=== PATIENT | male | born 1970 | race Hispanic/Latino ===

== ENCOUNTER 2016-08-08 12:14 | Emergency (ER) | payer SELFPAY ==
[2016-08-08] MEDS ORDERED: amLODIPine BESYLATE 5 MG TAB PO ONE (12:24)
[2016-08-08 12:25] VITALS: TEMP 97
[2016-08-08] MEDS ORDERED: cloNIDine HCL 0.1 MG TAB PO ONE ×2 (12:25→15:04)
[2016-08-08] MEDS ORDERED: HYDROcodone 5MG/APAP 325MG 1 EA TAB PO ONE (12:25)
[2016-08-08 13:44] VITALS: O2SAT 97
--- NOTE | 2016-08-08 14:50 | ED.PDOC ---
History of Present Illness - General Chief Complaint: Blood Pressure Problem Stated Complaint: HYPERTENSION, HEADACHE Time Seen by Provider: 08/08/16 12:24 Source: patient Exam Limitations: no limitations - History of Present Illness Initial Comments: the patient is a 46-year-old male presenting to the emergency room secondary to headache with associated dizziness and blurry vision for the last 3 -4 days. Headache is fairly severe. There is a little more pain to the left side of the scalp. Patient has gotten more blurry over the last 2 days. He does have a history of hypertension but has not been taking his medications. He has not been following up with primary care doctor. He is unsure what his blood pressure normally runs. He is not having any chest pain or shortness of breath. No syncope or near syncope. Headache is made worse by moving his head. Severity: moderate Improving Factors: nothing Worsening Factors: movement Associated Symptoms: diaphoresis, headaches, loss of appetite, malaise Allergies/Adverse Reactions: Allergies Ibuprofen Allergy (Verified 08/08/16 12:19) Home Medications: Ambulatory Orders Amlodipine Besylate 5 mg PO DAILY #30 tab 08/08/16 Hydrochlorothiazide 12.5 mg PO DAILY #30 tab 08/08/16 Review of Systems - Review of Systems Constitutional: States: malaise EENTM: States: blurred vision Respiratory: States: no symptoms reported Cardiology: States: no symptoms reported Gastrointestinal/Abdominal: States: no symptoms reported Genitourinary: States: no symptoms reported Musculoskeletal: States: no symptoms reported, neck pain Skin: States: no symptoms reported Neurological: States: anxiety, headache All other Systems: No Change from Baseline Past Medical History (General) - Patient Medical History Hx Seizures: No Hx Asthma: No Hx of COPD: No Hx Cardiac Disorders: Yes Hx Congestive Heart Failure: No Hx Pacemaker: No Hx Hypertension: Yes Hx Diabetes: No Hx Gastroesophageal Reflux: No Surgical History: other Family Medical History - Family History Mother Family History: Unknown Physical Exam - Physical Exam General Appearance: Alert Eye Exam: bilateral normal Ears, Nose, Throat: hearing grossly normal, normal ENT inspection, normal pharynx Neck: full range of motion, supple, other - the patient has tenderness to palpation over the left side of the scalp and over his posterior atlantooccipital junction. Respiratory: chest non-tender, lungs clear, normal breath sounds, no respiratory distress, no accessory muscle use Cardiovascular/Chest: normal peripheral pulses, regular rate, rhythm, no edema Peripheral Pulses: radial,right: 2+, radial,left: 2+, dorsalis pedis,right: 2+, dorsalis pedis,left: 2+, posterior tibialis,right: 2+, posterior tibialis,left: 2+ Gastrointestinal/Abdominal: non tender, soft Rectal Exam: deferred Back Exam: normal inspection, no CVA tenderness, no vertebral tenderness Extremity: normal range of motion, non-tender, normal inspection, no pedal edema , normal capillary refill Neurologic: viticulturist II-XII nml as tested - vision is a little blurry initially., alert, normal mood/affect, oriented x 3 Skin Exam: normal color Comments: Vital Signs - 24 hr 08/08/16 08/08/16 08/08/16 12:22 12:28 13:00 Temperature 97.0 F L Pulse Rate [ 90 90 LEFT BRACHIAL] Respiratory 18 Rate Blood Pressure 173/103 158/96 [LEFT BRACHIAL] O2 Sat by Pulse 95 97 Oximetry 08/08/16 13:40 Temperature Pulse Rate [ 82 LEFT BRACHIAL] Respiratory 16 Rate Blood Pressure 130/79 [LEFT BRACHIAL] O2 Sat by Pulse Oximetry Progress - Progress Progress: 08/08/16 14:52 the patient is a 46-year-old male presenting due to hypertensive emergency. The patient has responded well to oral antihypertensives. headache and blurry vision have improved significantly. The patient does exhibit signs of cardiac strain on his EKG. The patient will be placed on amlodipine 5 mg by mouth daily along with hydrochlorothiazide 12.5 mg by mouth daily. He does need to obtain an extra large blood pressure cuff and check his blood pressures 2 times daily while he is at rest. He also needs to start taking 160 mg of aspirin daily. He also needs to get set up with a primary care doctor. He needs further testing including a fasting lipid panel. Gross examination of the blood work here shows that his blood is significantly lipemic. He needs to discuss a plan of treatment for that with his primary care doctor in the very near future. In the meantime, he needs to work on diet and exercise, targeting weight loss. ER warnings were given for any recurrence or worsening of symptoms. His blood sugar was mildly elevated today here however he was under stress and this does need to be followed as well. - Results/Orders Results/Orders: Laboratory Tests 08/08/16 08/08/16 08/08/16 12:40 12:40 12:40 WBC 9.5 RBC 4.61 L Hgb 14.9 Hct 42.2 MCV 91.5 MCH 32.3 H MCHC 35.3 RDW 13.9 Plt Count 143 MPV 11.2 H Absolute Neuts (auto) 6.70 Absolute Lymphs (auto) 2.10 Absolute Monos (auto) 0.60 Absolute Eos (auto) 0.00 Absolute Basos (auto) 0.10 Neutrophils % 70.2 Lymphocytes % 22.0 Monocytes % 6.7 Eosinophils % 0.2 L Basophils % 0.9 ESR 15 Sodium 133 L Potassium 4.1 Chloride 100 L Carbon Dioxide 25 Anion Gap 12.1 BUN 17 Creatinine 0.88 BUN/Creatinine Ratio 19.3 Random Glucose 169 H Serum Osmolality 271.8 L Calcium 9.2 Total Bilirubin 0.2 AST 42 ALT 62 H Alkaline Phosphatase 112 Creatine Kinase 225 H* CK-MB (CK-2) 3.7 CK-MB (CK-2) % 1.64 Troponin I < 0.02 B-Natriuretic Peptide 7.1 Serum Total Protein 6.6 Albumin 4.6 Globulin 2.0 L Albumin/Globulin Ratio 2.3 H TSH 0.73 Urine Color Urine Appearance Urine pH Ur Specific [place] Urine Protein Urine Glucose (UA) Urine Ketones Urine Blood Urine Nitrite Urine Bilirubin Urine Urobilinogen Ur Leukocyte Esterase Urine RBC Urine WBC Ur Epithelial Cells Urine Bacteria 08/08/16 13:04 WBC RBC Hgb Hct MCV MCH MCHC RDW Plt Count MPV Absolute Neuts (auto) Absolute Lymphs (auto) Absolute Monos (auto) Absolute Eos (auto) Absolute Basos (auto) Neutrophils % Lymphocytes % Monocytes % Eosinophils % Basophils % ESR Sodium Potassium Chloride Carbon Dioxide Anion Gap BUN Creatinine BUN/Creatinine Ratio Random Glucose Serum Osmolality Calcium Total Bilirubin AST ALT Alkaline Phosphatase Creatine Kinase CK-MB (CK-2) CK-MB (CK-2) % Troponin I B-Natriuretic Peptide Serum Total Protein Albumin Globulin Albumin/Globulin Ratio TSH Urine Color Yellow Urine Appearance Clear Urine pH 7.0 Ur Specific [place] 1.020 Urine Protein Negative Urine Glucose (UA) Negative Urine Ketones Negative Urine Blood Trace-intact H Urine Nitrite Negative Urine Bilirubin Negative Urine Urobilinogen 0.2 Ur Leukocyte Esterase Negative Urine RBC 0-1 Urine WBC 0 Ur Epithelial Cells 0 Urine Bacteria 0 EKG shows normal sinus rhythm with T-wave inversions in leads 1, 2, V4, V5 and V6. Departure - Departure Clinical Impression: Hypertensive emergency without congestive heart failure Disposition: Discharge to Home or Self Care Condition: Fair Departure Forms: ED Discharge - Pt. Copy, Patient Portal Self Enrollment Instructions: DI for High Blood Pressure Diet: low fat, low cholesterol, low salt diet Activity: increase activity as tolerated Prescriptions: Amlodipine Besylate 5 mg PO DAILY #30 tab Hydrochlorothiazide 12.5 mg PO DAILY #30 tab Home Medications: Ambulatory Orders Amlodipine Besylate 5 mg PO DAILY #30 tab 08/08/16 Hydrochlorothiazide 12.5 mg PO DAILY #30 tab 08/08/16 Additional Instructions: the patient is a 46-year-old male presenting due to hypertensive emergency. The patient has responded well to oral antihypertensives. headache and blurry vision have improved significantly. The patient does exhibit signs of cardiac strain on his EKG. The patient will be placed on amlodipine 5 mg by mouth daily along with hydrochlorothiazide 12.5 mg by mouth daily. He does need to obtain an extra large blood pressure cuff and check his blood pressures 2 times daily while he is at rest. He also needs to start taking 160 mg of aspirin daily. He also needs to get set up with a primary care doctor. He needs further testing including a fasting lipid panel. Gross examination of the blood work here shows that his blood is significantly lipemic. He needs to discuss a plan of treatment for that with his primary care doctor in the very near future. In the meantime, he needs to work on diet and exercise, targeting weight loss. ER warnings were given for any recurrence or worsening of symptoms. His blood sugar was mildly elevated today here however he was under stress and this does need to be followed as well.
[2016-08-08 15:16] VITALS: BP 150/89
== END 2016-08-08 15:10 | disposition home or self-care (01) ==
LOC: ER 12:14
DX: I16.0 Hypertensive urgency (principal); Z88.6 Allergy status to analgesic agent; Z79.899 Other long term (current) drug therapy